=== PATIENT | female | born 1980 | race Caucasian/White ===

== ENCOUNTER 2016-07-26 04:36 | Emergency (ER) | payer OTHER ==
[2016-07-26 04:21] LABS: BILIRUBIN NEGATIVE (NEGATIVE); BLOOD 3+ Ery/uL (NEGATIVE); CLARITY HAZY (CLEAR); COLOR YELLOW (YELLOW); GLUCOSE (U) NORMAL (NORMAL); KETONE (U) TRACE mg/dL (NEGATIVE); LEUKOCYTES NEGATIVE Leu/uL (NEGATIVE); NITRITE NEGATIVE (NEGATIVE); PROTEIN NEGATIVE (NEGATIVE); pH 6.5 (5.0-9.0)
[2016-07-26 04:29] LABS: URINARY RBC 20-50
[2016-07-26 04:30] LABS: BACTERIA 1+; MUCOUS TRACE
[2016-07-26 04:49] LABS: BASOPHIL 0.2 % (0-2); EOSINOPHIL 0.7 % (0-5); HCT 45.4 % (37.0-47.0); HGB 15.7 g/dl (12.5-16.0); LYMPHOCYTE 28.8 % (15-48); MCH 32.6 pg (25.0-31.0); MCHC 34.6 g/dL (32.0-36.0); MCV 94.4 fL (78.0-100.0); MONOCYTE 9.3 % (0-12); MPV 11.3 fL (6.0-9.5); PLT 201 K/uL (150-400); RBC 4.81 M/uL (4.20-5.40)
[2016-07-26 05:09] LABS: ALBUMIN 4.2 g/dL (3.5-5.0); BILIRUBIN - TOTAL 0.2 mg/dL (0.1-1.0); CREATININE 0.9 mg/dL (0.5-1.0); GLOBULIN (CALCULATION) 2.8 g/dL (2.2-4.2); POTASSIUM 3.6 mmol/L (3.5-5.1)
== END 2016-07-26 09:48 | disposition home or self-care (01) ==
LOC: FER 04:36
PROVIDERS: Emergency Medicine
DX: N20.0 Calculus of kidney (principal); Z87.442 Personal history of urinary calculi; Z79.82 Long term (current) use of aspirin; Z79.899 Other long term (current) drug therapy; Z90.49 Acquired absence of other specified parts of digestive tract; Z98.84 Bariatric surgery status
CPT/HCPCS: 36415; 80053; 81001; 82150; 83690; 85025; 87088; J1170; J1885; J2270; J2405

== ENCOUNTER 2016-07-27 13:36 | Emergency (ER) | payer OTHER ==
[2016-07-27 15:38] LABS: BILIRUBIN NEGATIVE (NEGATIVE); BLOOD 3+ Ery/uL (NEGATIVE); CLARITY CLEAR (CLEAR); COLOR YELLOW (YELLOW); GLUCOSE (U) NORMAL (NORMAL); KETONE (U) NEGATIVE (NEGATIVE); LEUKOCYTES NEGATIVE Leu/uL (NEGATIVE); NITRITE NEGATIVE (NEGATIVE); PROTEIN NEGATIVE (NEGATIVE); SPECIFIC GRAVITY <=1.005 (1.001-1.030); UROBILINOGEN 0.2 mg/dL (0.2-1.0); pH 7.5 (5.0-9.0)
[2016-07-27 15:48] LABS: BACTERIA 1+
== END 2016-07-27 17:43 | disposition home or self-care (01) ==
LOC: FER 13:36
PROVIDERS: Nurse Practitioner
DX: N83.209 Unspecified ovarian cyst, unspecified side (principal); N20.0 Calculus of kidney; F17.210 Nicotine dependence, cigarettes, uncomplicated; Z88.5 Allergy status to narcotic agent
CPT/HCPCS: 76830; 81001; 87088

== ENCOUNTER 2020-07-02 21:04 | Emergency (ER) | payer OTHER ==
[~2020-07-02 21:04] MED LIST: ACID CONTROL150 MG PO; ADULT ASPIRIN R81 MG PO; ATENOLOL25 MG PO; BUSPIRONE HCL15 M1 PO; CYCLOBENZAPRINE10 MG PO; HAIR, SKIN & N1 EACH PO; HYDROCHLOROTHIA25 MG PO; LIPITOR40 MG PO; MEDROL 4MG DOSEP4 MG PO; MOTRIN600 MG PO; NEURONTIN300 MG PO; PERCOCET 5-3251 EACH PO; POTASSIUM600 MG PO; PROAIR HFA8.5 GM INH; RIZATRIPTAN10 MG PO; TOPAMAX50 MG PO; WELLBUTRIN XL300 MG PO
[2020-07-02 22:09] LABS: BASOPHIL 0.4 % (0-2); EOSINOPHIL 0.7 % (0-5); HCT 43.5 % (37.0-47.0); HGB 13.9 g/dl (12.5-16.0); LYMPHOCYTE 24.7 % (15-48); MCH 30.2 pg (25.0-31.0); MCV 94.4 fL (78.0-100.0); MPV 11.1 fL (6.0-9.5); NEUTROPHIL 64.8 % (41-80); NRBC 0; PLT 206 K/uL (150-400); RBC 4.61 M/uL (4.20-5.40); RDW 12.8 % (11.5-14.0); WBC 9.5 K/uL (4.0-10.5)
[2020-07-02 22:21] LABS: BUN/CREAT RATIO (CALC) 14.7 RATIO; CREATININE 0.95 mg/dL (0.51-0.95); POTASSIUM 3.7 mmol/L (3.5-5.1)
[2020-07-02 22:48] LABS: CORONAVIRUS 2019 SARS-COV-2 NEGATIVE (NEGATIVE); INFLUENZA A NAA NEGATIVE (NEGATIVE)
[2020-07-02 22:49] LABS: BILIRUBIN NEGATIVE (NEGATIVE); BLOOD TRACE-INTACT Ery/uL (NEGATIVE); CLARITY CLEAR (CLEAR); COLOR YELLOW (YELLOW); GLUCOSE (U) NORMAL (NORMAL); LEUKOCYTES NEGATIVE Leu/uL (NEGATIVE); NITRITE NEGATIVE (NEGATIVE); PROTEIN NEGATIVE (NEGATIVE); UROBILINOGEN 0.2 mg/dL (0.2-1.0)
[2020-07-02 22:58] LABS: SQUAMOUS EPITHELIAL CELLS RARE; URINARY RBC RARE
== END 2020-07-02 23:17 | disposition home or self-care (01) ==
LOC: FER 21:04
PROVIDERS: Emergency Medicine
DX: B34.9 Viral infection, unspecified (principal); I10 Essential (primary) hypertension; Z87.891 Personal history of nicotine dependence; Z88.5 Allergy status to narcotic agent; Z79.899 Other long term (current) drug therapy; Z20.822 Contact with and (suspected) exposure to COVID-19
CPT/HCPCS: 36415; 71045; 80048; 81001; 85025; 96372; J1040; J1885; U0002

== ENCOUNTER 2020-09-17 15:39 | Emergency (ER) | payer OTHER ==
[2020-09-17] MEDS ORDERED: ZPAK PO (17:22)
[2020-09-17] MEDS ORDERED: MEDROL 4MG DOSEP4 MG PO (17:22)
== END 2020-09-17 17:38 | disposition home or self-care (01) ==
LOC: FER 15:39
DX: J06.9 Acute upper respiratory infection, unspecified (principal); Z88.5 Allergy status to narcotic agent; Z87.448 Personal history of other diseases of urinary system; Z20.822 Contact with and (suspected) exposure to COVID-19
CPT/HCPCS: 71045; U0002

== ENCOUNTER 2021-01-31 00:11 | Emergency (ER) | payer OTHER ==
[~2021-01-31 00:11] MED LIST changes: +ZPAK PO
[2021-01-31 02:03] LABS: BASOPHIL 0.2 % (0-2); EOSINOPHIL 0.5 % (0-5); HCT 44.5 % (37.0-47.0); HGB 14.3 g/dl (12.5-16.0); MCH 30.1 pg (25.0-31.0); MCHC 32.1 g/dL (32.0-36.0); MCV 93.7 fL (78.0-100.0); MONOCYTE 9.5 % (0-12); MPV 10.1 fL (6.0-9.5); NEUTROPHIL 76.3 % (41-80); NRBC 0; PLT 179 K/uL (150-400); RBC 4.75 M/uL (4.20-5.40); RDW 12.2 % (11.5-14.0); WBC 8.2 K/uL (4.0-10.5)
[2021-01-31 02:21] LABS: ALBUMIN 3.3 g/dL (3.4-5.0); BILIRUBIN - TOTAL 0.2 mg/dL (0.2-1.0); BUN/CREAT RATIO (CALC) 17.4 RATIO; CREATININE 0.92 mg/dL (0.51-0.95); GLOBULIN (CALCULATION) 3.3 g/dL; TOTAL PROTEIN 6.6 g/dL (6.4-8.2)
[2021-01-31] MEDS ORDERED: AZITHROMYCIN250 MG PO (03:54)
[2021-01-31] MEDS ORDERED: VENTOLIN HFA18 GM INH (03:54)
[2021-01-31] MEDS ORDERED: ZOFRAN4 M1 PO (03:54)
== END 2021-01-31 04:25 | disposition home or self-care (01) ==
LOC: FER 00:11
PROVIDERS: Emergency Medicine
DX: U07.1 COVID-19 (principal); Z23 Encounter for immunization; K21.9 Gastro-esophageal reflux disease without esophagitis
CPT/HCPCS: 36415; 71045; 80053; 84484; 85025; 93005; J1885; J2930; J7120; M0243; Q0244; U0002

== ENCOUNTER → 2021-06-12 | Day surgery (SDC) | payer OTHER ==
[~2021-06-12] VITALS: Ht 160 cm; Wt 133.9 kg
[~2021-06-12] MED LIST changes: +AIMOVIG AU140 MG/1 M IM; +AZITHROMYCIN250 MG PO; +HYDROXYZINE HCL50 MG PO; +LAMOTRIGINE200 MG PO; +PANTOPRAZOLE SO40 MG PO; +PROPRANOLOL HCL10 MG PO; +SERTRALINE HCL100 MG PO; +TRAZODONE HCL150 MG PO; +VENTOLIN HFA18 GM INH; +ZOFRAN4 M1 PO
[2021-06-12 11:13] LABS: HCG (URINE) SCREEN NEGATIVE (NEGATIVE)
[2021-06-12 11:26] LABS: HCT 45.1 % (37.0-47.0); HGB 14.4 g/dl (12.5-16.0); MCH 29.8 pg (25.0-31.0); MCHC 31.9 g/dL (32.0-36.0); MCV 93.4 fL (78.0-100.0); MPV 9.8 fL (6.0-9.5); RBC 4.83 M/uL (4.20-5.40); RDW 14.1 % (11.5-14.0); WBC 9.4 K/uL (4.0-10.5)
[2021-06-12 11:42] LABS: CREATININE 0.81 mg/dL (0.51-0.95); POTASSIUM 4.3 mmol/L (3.5-5.1)
== END | disposition home or self-care (01) ==
LOC: FAS 10:23
PROVIDERS: Legal Medicine
DX: M75.101 Unspecified rotator cuff tear or rupture of right shoulder, not specified as traumatic (principal); M19.011 Primary osteoarthritis, right shoulder; M75.41 Impingement syndrome of right shoulder; G89.18 Other acute postprocedural pain; I10 Essential (primary) hypertension; E78.00 Pure hypercholesterolemia, unspecified; F17.210 Nicotine dependence, cigarettes, uncomplicated; J45.909 Unspecified asthma, uncomplicated; G47.33 Obstructive sleep apnea (adult) (pediatric); K21.9 Gastro-esophageal reflux disease without esophagitis; Z79.899 Other long term (current) drug therapy
CPT/HCPCS: 36415; 80048; 84703; C1713; J0171; J0690; J1100; J2250; J2405; J2704; J2710; J2795; J7120